=== PATIENT | female | born 1965 | race African-American/Black ===

== ENCOUNTER → 2019-05-25 17:50 | Outpatient (CLI) | payer BC | END | disposition home or self-care (01) | LOC: RAD 17:50 | DX: M25.561 Pain in right knee (principal); M21.061 Valgus deformity, not elsewhere classified, right knee; M79.672 Pain in left foot ==

== ENCOUNTER → 2019-05-31 | Outpatient (CLI) | payer BC | END | disposition home or self-care (01) | LOC: RAD 10:47 | DX: S93.492A Sprain of other ligament of left ankle, initial encounter (principal) ==